=== PATIENT | male | born 1970 | race African-American/Black ===

== ENCOUNTER 2017-10-25 23:16 | Emergency (ER) | payer OTHER ==
[2017-10-25 23:41] VITALS: BP 125/104; PULSE 91; TEMP 97.6; BMI 30.9
[2017-10-26] MEDS ORDERED: IBUPROFEN 600 MG TABLET (FP) PO ONE (00:10)
--- NOTE | 2017-10-26 00:10 | PDOC ---
History of Present Illness - General History Source: Patient, Old Records Exam Limitations: No Limitations - History of Present Illness Initial Comments: 10/26/17 00:36 The patient is a 46 year old male with significant past medical history of Hypertension and Diabetes was brought to the ER by EMT complaining of right side groin pain which manifested after lifting jacks at work. The patient report of right lower back pain and denies any pain down his leg. The patient reports of having feet numbness due to neuropathy. The patient reports that he can walk by him self without assistance. Social History: Smokes Cigarettes. Drinks occasionally Medication: Methadone (in program since 2012). <Chidi Murphy - Last Filed: 10/26/17 00:56> <Gloria Gorman - Last Filed: 10/26/17 01:29> - General Chief Complaint: Pain Stated Complaint: PAIN Time Seen by Provider: 10/25/17 23:59 Past History <Chidi Murphy - Last Filed: 10/26/17 00:56> - Past Medical History COPD: No Diabetes: Yes HTN: Yes - Suicide/Smoking/Psychosocial Hx Smoking History: Current every day smoker Have you smoked in the past 12 months: Yes Number of Cigarettes Smoked Daily: 10 Information on smoking cessation initiated: No Hx Alcohol Use: No Drug/Substance Use Hx: No <Gloria Gorman - Last Filed: 10/26/17 01:29> - Past Medical History Allergies/Adverse Reactions: Allergies Allergy/AdvReac Type Severity Reaction Status Date / Time Penicillins Allergy Verified 10/25/17 23:39 Home Medications: Ambulatory Orders Cyclobenzaprine HCl [Flexeril 10 mg] 10 mg PO BID PRN #10 tablet 10/26/17 Ibuprofen [Motrin -] 600 mg PO TID PRN #21 tablet 10/26/17 Review of Systems - Review of Systems Able to Perform ROS?: Yes Comments:: 10/26/17 00:36 GENERAL/CONSTITUTIONAL: No fever or chills. No weakness. HEAD, EYES, EARS, NOSE AND THROAT: No change in vision. No ear pain or discharge. No sore throat. CARDIOVASCULAR: No chest pain or shortness of breath RESPIRATORY: No cough, wheezing, or hemoptysis. GASTROINTESTINAL: No nausea, vomiting, diarrhea or constipation. GENITOURINARY: (+) Right groin pain. No dysuria, frequency, or change in urination. MUSCULOSKELETAL: No joint or muscle swelling or pain. No neck or back pain. SKIN: No rash NEUROLOGIC: No headache, vertigo, loss of consciousness, or change in strength/ sensation. ENDOCRINE: No increased thirst. No abnormal weight change HEMATOLOGIC/LYMPHATIC: No anemia, easy bleeding, or history of blood clots. ALLERGIC/IMMUNOLOGIC: No hives or skin allergy. <Chidi Murphy - Last Filed: 10/26/17 00:56> *Physical Exam - Vital Signs Last Vital Signs Temp Pulse Resp BP Pulse Ox 97.6 F 91 H 20 125/104 98 10/25/17 23:39 10/25/17 23:39 10/25/17 23:39 10/25/17 23:39 10/25/17 23:39 - Physical Exam Comments: 10/26/17 00:37 GENERAL: Awake, alert, and fully oriented, in no acute distress HEAD: No signs of trauma, normocephalic, atraumatic EYES: PERRLA, EOMI, sclera anicteric, conjunctiva clear ENT: Auricles normal inspection, hearing grossly normal, nares patent, oropharynx clear without exudates. Moist mucosa NECK: Normal ROM, supple, no lymphadenopathy, JVD, or masses LUNGS: No distress, speaks full sentences, clear to auscultation bilaterally HEART: Regular rate and rhythm, normal S1 and S2, no murmurs, rubs or gallops, peripheral pulses normal and equal bilaterally. ABDOMEN: Soft, nontender, normoactive bowel sounds. No guarding, no rebound. No masses GROIN: (+) Tenderness on the right inner groin muscle but no hematoma. No testicular tenderness, circumcised, no scrotal hernias. EXTREMITIES : Normal inspection, Normal range of motion, no edema. No clubbing or cyanosis. NEUROLOGICAL: Cranial nerves II through XII grossly intact. Normal speech, normal gait, no focal sensorimotor deficits SKIN: Warm, Dry, normal turgor, no rashes or lesions noted <Chidi Murphy - Last Filed: 10/26/17 00:56> - Vital Signs Last Vital Signs Temp Pulse Resp BP Pulse Ox 97.6 F 91 H 20 125/104 98 10/25/17 23:39 10/25/17 23:39 10/25/17 23:39 10/25/17 23:39 10/25/17 23:39 <Gloria Gorman - Last Filed: 10/26/17 01:29> ED Treatment Course - Medications Given in the ED: ED Medications Discontinued Medications Generic Name Dose Route Start Last Admin Trade Name Caity PRN Reason Stop Dose Admin Ibuprofen 600 mg 10/26/17 00:10 10/26/17 00:27 Motrin - PO 10/26/17 00:11 600 mg ONCE ONE Administration <Chidi Murphy - Last Filed: 10/26/17 00:56> Medical Decision Making - Medical Decision Making 10/26/17 00:12 a/p: 46yo male with hx of heroin use, currently on methadone x 4-5 years c/o acute R groin pain after lifting a dale at work -FROM of hip -no midline ttp of C/T/L spine -R paraspinal ttp lumbar spine -no testicular or penile pain -no cva ttp -no abd pain -will obtain xrays of R hip and lumbar spine -motrin for pain -ambulated after feeling the pull in the hip 10/26/17 01:12 xrays reviewed - no acute findings pending official read testicular exam - no hernia, no lesions, no testicular pain, no ttp inner groin muscle on palpation pt ambulatory with a steady gait 10/26/17 01:13 pending UA - if negative will d/c to home with motrin and flexeril 10/26/17 01:28 no falls pt requesting to go home ambulatory, standing at the side of the stretcher steady gait discussed imaging results answered all questions. <Gloria Gorman - Last Filed: 10/26/17 01:29> *DC/Admit/Observation/Transfer - Attestations Scribe Attestion: 10/26/17 00:37 Documentation prepared by Chidi Murphy, acting as medical assembler for Gloria Gorman DO <Chidi Murphy - Last Filed: 10/26/17 00:56> - Discharge Dispostion Admit: No - Attestations Physician Attestion: 10/26/17 01:18 Dr. Gloria Ivy DO, attest that this document has been prepared under my direction and personally reviewed by me in its entirety. I further attest, that it accurately reflects all work, treatment, procedures and medical decision -making performed by me. <Gloria Gorman - Last Filed: 10/26/17 01:29> Diagnosis at time of Disposition: Strain of groin - Discharge Dispostion Disposition: HOME Condition at time of disposition: Stable - Prescriptions Prescriptions: Cyclobenzaprine HCl [Flexeril 10 mg] 10 mg PO BID PRN #10 tablet PRN Reason: Muscle Spasms Ibuprofen [Motrin -] 600 mg PO TID PRN #21 tablet PRN Reason: Pain - Referrals Referrals: Kamran Briones MD [Staff Physician] - Hammad Dempsey MD [Staff Physician] - - Patient Instructions Printed Discharge Instructions: DI for Groin Strain Additional Instructions: Please take all medications as prescribed. Please return to the ED with any further complaints. Please make an appointment to see your workman's comp physician. Please make an appointment to see the orthopedist if the pain continues. - Post Discharge Activity Forms/Work/School Notes: Back to Work
[2017-10-26] MEDS ORDERED: CYCLOBENZAPRINE HCL 10 MG TABLET (FP) PO ONE (00:57)
[2017-10-26] MEDS ORDERED: CYCLOBENZAPRINE HCL 10 MG TABLET (FP) ONE (01:02)
[2017-10-26 01:26] LABS: URINE APPEARANCE CLEAR; URINE BILIRUBIN NEGATIVE (<2.0 mg/dL); URINE BLOOD 1+ (NEGATIVE); URINE COLOR LTYELLOW; URINE GLUCOSE (UA) NEGATIVE (NEGATIVE); URINE KETONE NEGATIVE (NEGATIVE); URINE LEUK ESTERASE NEGATIVE (NEGATIVE); URINE NITRITE NEGATIVE (NEGATIVE); URINE PROTEIN NEGATIVE (NEGATIVE)
[2017-10-26 01:41] LABS: EPI CELLS RARE /HPF (FEW)
== END 2017-10-26 01:34 | disposition home or self-care (01) ==
LOC: JER 23:16
DX: S39.011A Strain of muscle, fascia and tendon of abdomen, initial encounter (principal); X58.XXXA Exposure to other specified factors, initial encounter; Y93.89 Activity, other specified; Y92.9 Unspecified place or not applicable; I10 Essential (primary) hypertension; E11.9 Type 2 diabetes mellitus without complications; F17.210 Nicotine dependence, cigarettes, uncomplicated
CPT/HCPCS: 72100-TC-FY; 73523-TC-FY; 81003; 81015; 99281-25